=== PATIENT | male | born 1985 | race Caucasian/White ===

== ENCOUNTER 2017-06-21 10:58 | Emergency (ER) | END 2017-06-21 11:32 | disposition home or self-care (01) ==

== ENCOUNTER 2017-07-05 13:57 | Emergency (ER) | END 2017-07-05 15:57 | disposition home or self-care (01) ==

== ENCOUNTER 2018-03-24 15:42 | Emergency (ER) | END 2018-03-24 19:03 | disposition home or self-care (01) ==

== ENCOUNTER 2018-04-06 23:28 | Emergency (ER) | END 2018-04-07 00:39 | disposition home or self-care (01) ==

== ENCOUNTER 2018-07-03 05:43 | Emergency (ER) | payer MEDICAID ==
[~2018-07-03] VITALS: Ht 170.2 cm; Wt 73.9 kg
[~2018-07-03 05:43] MED LIST: AMOX500C2 PO; CETI10CA PO; FEXO180T61 PO; FIORICET PO; FLUT9.9S NASAL; IBUP-1542 PO
[2018-07-03 05:51] VITALS: BP 116/67; PULSE 96; RESP 16; Ht 170.2 cm; Wt 73.9 kg
[2018-07-03] MEDS ORDERED: LEVO5TAB28 PO (06:18)
[2018-07-03] MEDS ORDERED: KETO5DRO71 OP (06:18)
[2018-07-03] MEDS ORDERED: FLUT9.9S NASAL (06:18)
--- NOTE | 2018-07-03 06:28 | ERD ---
ER Documentation Chief Complaint Chief Complaint ST and HYDE x 10 days HPI 32-year-old male presenting with sore throat and headache times 10 days. Patient has a mild runny nose and cough. No fevers. He has been taking Zyrtec with mild alleviation of symptoms. He states he has itchy eyes and scratchy throat. Denies any troubles breathing or facial swelling. Denies any fevers. Denies medical problems. NKDA. Surgical history denies. Social history denies ROS All systems reviewed and are negative except as per history of present illness. Medications Home Meds Active Scripts Levocetirizine Dihydrochloride (Xyzal) 5 Mg Tablet, 5 MG PO QPM, #30 TAB Prov:AMBER LI PA-C 07/03/18 Ketotifen Fumarate (ZADITOR) 5 Ml Drops, 5 ML OP DAILY, #1 BOTTLE Prov:AMBER LI PA-C 07/03/18 Fluticasone Propionate (Flonase Allergy Relief) 9.9 Ml [place].susp, 1 SPRAY NASAL DAILY, #1 BOTTLE TO EACH NOSTRIL Prov:AMBER LI PA-C 07/03/18 Ibuprofen* (Motrin*) 600 Mg Tab, 600 MG PO Q6, #30 TAB Prov:KEITH DELEON PA-C 04/07/18 Cetirizine Hcl* (Zyrtec*) 10 Mg Capsule, 10 MG PO DAILY, #10 TAB.CHEW Prov:KEITH DELEON PA-C 04/07/18 Fluticasone Propionate (Flonase Allergy Relief) 9.9 Ml [place].susp, 1 SPRAY NASAL BID, #1 BOTTLE TO EACH NOSTRIL Prov:KEITH DELEON PA-C 04/07/18 Acetamin/Butalbital/Caffeine* (Fioricet*) [id number] Tab, 1 TAB PO TID PRN for HEADACHE, #15 TAB Prov:PILI ZAMORA MD 03/24/18 Amoxicillin* (Amoxicillin*) 500 Mg Cap, 500 MG PO TID for 7 Days, CAP Prov:PILI ZAMORA MD 03/24/18 Fluticasone Propionate (Flonase Allergy Relief) 9.9 Ml [place].susp, 1 SPRAY NASAL BID for 30 Days, #1 BOTTLE TO EACH NOSTRIL Prov:MARVIN PORTILLO 07/05/17 Fexofenadine Hcl* (Ingrid*) 180 Mg Tablet, 180 MG PO DAILY, #30 TAB Prov:MARVIN PORTILLO 07/05/17 Cetirizine Hcl* (Zyrtec*) 10 Mg Capsule, 10 MG PO DAILY, #10 TAB.CHEW Prov:CAROL SIMONSGOOD LEMUS 06/21/17 Ibuprofen* (Motrin*) 600 Mg Tab, 600 MG PO Q6, #30 TAB Prov:JESU SIMONS JOHN-C 06/21/17 Amoxicillin* (Amoxicillin*) 500 Mg Cap, 500 MG PO BID for 7 Days, CAP Prov:JESU SIMONS ALLAN 06/21/17 Allergies Allergies: Coded Allergies: No Known Allergy (Unverified , 03/24/18) PMhx/Soc History of Surgery: No Anesthesia Reaction: No Hx Neurological Disorder: No Hx Respiratory Disorders: No Hx Cardiac Disorders: No Hx Psychiatric Problems: No Hx Miscellaneous Medical Probl: No Hx Alcohol Use: No Hx Substance Use: No Hx Tobacco Use: No FmHx Family History: No diabetes, No coronary disease, No other Physical Exam Vitals Vital Signs Date Temp Pulse Resp B/P (MAP) Pulse Ox O2 O2 Flow FiO2 Time Delivery Rate 07/03/18 98.4 96 16 116/67 100 05:51 (83) Physical Exam GENERAL: The patient is well-appearing, well-nourished, in no acute distress HEENT: Atraumatic. Conjunctivae are pink. Pupils equal, round, and reactive to light. There is no scleral icterus. Tympanic membranes clear bilaterally. Oropharynx clear. NECK: C-spine is soft and supple. There is no meningismus. There is no cervical lymphadenopathy. CHEST: Clear to auscultation bilaterally. There are no rales, wheezes or rhonchi. HEART: Regular rate and rhythm. No murmurs, clicks, rubs or gallops. Procedures/MDM MDM: 32-year-old male presenting with cough and runny nose. Patient likely has allergic rhinitis and I have low suspicion for bacterial infection. Patient will be discharged with those supportive medications. Patient's vitals are stable and exam is non-concerning. Patient is told if symptoms change or worsen to return immediately to the ER. All questions answered at discharge Departure Diagnosis: Primary Impression: Allergic rhinitis Condition: Stable Patient Instructions: Allergic Rhinitis Referrals: [facility] YOU HAVE RECEIVED A MEDICAL SCREENING EXAM AND THE RESULTS INDICATE THAT YOU DO NOT HAVE A CONDITION THAT REQUIRES URGENT TREATMENT IN THE EMERGENCY DEPARTMENT. FURTHER EVALUATION AND TREATMENT OF YOUR CONDITION CAN WAIT UNTIL YOU ARE SEEN IN YOUR DOCTORS OFFICE WITHIN THE NEXT 1-2 DAYS. IT IS YOUR RESPONSIBILITY TO MAKE AN APPOINTMENT FOR FOLOW-UP CARE. IF YOU HAVE A PRIMARY DOCTOR --you should call your primary doctor and schedule an appointment IF YOU DO NOT HAVE A PRIMARY DOCTOR YOU CAN CALL OUR PHYSICIAN REFERRAL HOTLINE AT IF YOU CAN NOT AFFORD TO SEE A PHYSICIAN YOU CAN CHOSE FROM THE FOLLOWING [facility] [address] [facility] [address] [facility] [address] [facility] [address] [facility] [address] [facility] [address] Additional Instructions: FOLLOW UP WITH YOUR PRIMARY CARE PHYSICIAN TOMORROW.Return to this facility if you are not improving as expected. AMBER LI PA-C Jul 03, 2018 06:28
== END 2018-07-03 07:03 | disposition home or self-care (01) ==
LOC: FTE 05:43
DX: J30.9 Allergic rhinitis, unspecified (principal)
CPT/HCPCS: 99283